=== PATIENT | male | born 1985 | race Caucasian/White ===

== ENCOUNTER 2021-10-30 13:54 | Emergency (ER) | payer OTHER ==
[~2021-10-30] VITALS: Ht 188 cm; Wt 100.0 kg
[2021-10-30 14:04] VITALS: BP 117/77
[2021-10-30] MEDS ORDERED: oxyCODONE IR 5mg (immed. release) tablet PO ONE (15:05)
[2021-10-30 16:00] LABS: D-DIMER < 0.19 MG/L FEU (0-0.50)
[2021-10-30] MEDS ORDERED: CYCL-1 PO (16:36)
== END 2021-10-30 16:58 | disposition home or self-care (01) ==
LOC: ER 13:55
DX: M62.830 Muscle spasm of back (principal); Z79.899 Other long term (current) drug therapy
CPT/HCPCS: 36415; 71046; 85379; 99284